=== PATIENT | male | born 1970 ===

== ENCOUNTER 2018-05-21 07:17 | Observation (INO) ==
[2018-05-21] MEDS ORDERED: Sodium Chloride 0.9% 1,000 ML PRIMARY IV ONE (07:24)
[2018-05-21] MEDS ORDERED: ASPIRIN 81 MG (BABY) CHEWABLE TABLET PO ONE (07:24)
--- NOTE | 2018-05-21 07:26 | EKG ---
[address] [address] Measurements Intervals [place] Rate: 81 P: 86 WV: 163 QRS: 80 QRSD: 85 T: 69 QT: 382 QTc: 419 Interpretive Statements SINUS RHYTHM No previous ECG available for comparison Electronically Signed On 05-21-18 11:45:36 MDT by Stanislaw Page [email or web address]
[2018-05-21 07:31] VITALS: RESP 16
[2018-05-21 07:37] LABS: BASOPHILS # (AUTO) 0.06 10*3/UL; BASOPHILS % (AUTO) 0.9 % (0-1); EOSINOPHILS # (AUTO) 0.17 10*3/UL; EOSINOPHILS % (AUTO) 2.6 % (0-8); Hematocrit [HCT] 47.6 % (42.0-52.0); Hemoglobin [HGB] 16.4 g/dL (14.0-18.0); LYMPHOCYTES # (AUTO) 1.84 10*3/uL; MEAN CORPUSCULAR HEMOGLOBIN 30.4 PG (27-31); MEAN CORPUSCULAR HGB CONC 34.5 g/dL (33-37); MEAN CORPUSCULAR VOLUME 88.3 FL (80-90); MEAN PLATELET VOLUME 8.8 FL (7.4-12.2); MONOCYTES # (AUTO) 0.33 10*3/UL (0.3-0.8); MONOCYTES % (AUTO) 5.1 % (5-15); NEUTROPHILS # (AUTO) 4.02 10*3/UL; NEUTROPHILS % (AUTO) 62.6 % (50-80); RED BLOOD COUNT 5.39 10^6/uL (4.70-6.10)
[2018-05-21 07:40] LABS: PLATELET MORPHOLOGY COMMENT NORMAL MORPHOLOGY (NORM); RBC MORPHOLOGY COMMENT NORMAL MORPHOLOGY (NORM); WBC MORPHOLOGY COMMENT NORMAL MORPHOLOGY (NORM)
[2018-05-21 07:46] LABS: BLOOD UREA NITROGEN 18 mg/dL (7-22); LIPASE 94 IU/L (23-300); SERUM ALBUMIN 5.1 g/dL (3.5-4.8)
--- NOTE | 2018-05-21 07:48 | PDOC ---
Chest Pain HPI - General Chief Complaint: Chest Pain Stated Complaint: chest pain Date Seen by Provider: 05/21/18 Time Seen by Provider: 07:30 Source: Patient Exam Limitations: POSITIVE: No limitations Treatment Prior to Arrival: REPORTS: None Nurse's Notes Reviewed & Considered: Yes - History of Present Illness Initial Comments: The patient is a 48-year-old male who presents to the emergency department with chest pain. He states that he had onset of pain in the left lower and mid chest approximately 20 minutes prior to arrival to the emergency department. He states that he was just sitting working on his computer when he had onset of pain. He states that the pain was intense and he states it was close to 10 out of 10. He had associated lightheadedness and felt like he could not catch his b reath secondary to the pain. By the time he arrives here in the emergency department he states that the pain has significantly improved. He currently rates his pain a 3 out of 10. He states that he has had similar pain in the past and underwent cardiac workup in 2017. He states that he had a stress test which was normal. He was told that he might be having spasms that are causing his pain. He denies any history of hypertension, hyperlipidemia or diabetes. He does smoke. He denies any significant family history of heart disease at an early age or blood clots. He states he does have some mild swelling in his feet in the mornings. He denies any leg pain. - Patient Home Medications Home Medications: Home Medications NK 05/12/18 - Patient Allergies Allergies/Adverse Reactions: Allergies Allergy/AdvReac Type Severity Reaction Status Date / Time No Known Allergies Allergy Verified 05/21/18 07:26 Past Medical History Past Medical History Reviewed: Other (please comment) (He does not take any prescription medications. He was recently seen at the doctor secondary to dizziness and weight loss and had blood work and chest x-ray done) ROS - Limitations ROS Limitations: No Limitations Constitution: DENIES: Chills, Fever Cardiovascular: REPORTS: Chest Pain Respiratory: REPORTS: Hurts To Breathe, Shortness Of Breath Neurological: REPORTS: Denies Neuro Symptoms Gastrointestinal: REPORTS: Nausea. DENIES: Vomitting Musculoskeletal: DENIES: Calf Pain, Muscle Aches Eyes: REPORTS: Denies Symptoms ENT: REPORTS: Denies Symptoms Skin: DENIES: Rash Chest Pain PE - General Appearance General Appearance: REPORTS: Alert, Cooperative, No Acute Distress - HEENT HEENT: POSITIVE: Head Inspection Nml, Eyes Inspection Nml, Ears Inspection Nml, Nose Inspection Nml, Pharynx Inspect. Nml - Neck Neck: REPORTS: Normal Inspection - Respiratory Respiratory: REPORTS: No Respiratory Distress, Breath Sounds Normal - Cardiovascular Cardiovascular: REPORTS: Regular Rate and Rhythm, Heart Sounds Normal Peripheral Pulses: Dorsalis-pedis (R): 2+, Dorsalis-pedis (L): 2+ - Abdomen Abdomen: Soft: (All Quadrants), Denies Tenderness: (All Quadrants), No Distention: (All Quadrants) - Skin Skin: REPORTS: Intact, No Rash - Extremities Extremity: Normal ROM: (All Extremities), Normal Inspection: (All Extremities) - Neurological / Psychological Neurological: POSITIVE: Oriented X3, dough cutter Normal As Tested, Motor Normal, Sensation Normal Chest Pain Progress - Results Reviewed by me Xrays/CTs/US Reviewed by me: Yes Discussed with Radiologist: Yes Radiology Findings: Chest x-ray is normal with no acute changes per radiologist. Lab Results Reviewed by Me: Yes CBC and BMP: 05/21/18 07:25 05/21/18 07:25 Lab Results:: Laboratory Results 05/21/18 05/21/18 05/21/18 07:25 07:25 07:25 WBC 6.43 RBC 5.39 Hgb 16.4 Hct 47.6 MCV 88.3 MCH 30.4 MCHC 34.5 RDW Std Deviation 42.0 RDW Coeff of [place] 13.0 Plt Count 365 H MPV 8.8 Immature Gran % (Auto) 0.2 Neut % (Auto) 62.6 Lymph % (Auto) 28.6 Lewis % (Auto) 5.1 Eos % (Auto) 2.6 Baso % (Auto) 0.9 Immature Gran # (Auto) 0.01 Neut # (Auto) 4.02 Lymph # (Auto) 1.84 [place] # (Auto) 0.33 Eos # (Auto) 0.17 Baso # (Auto) 0.06 WBC Morphology Comment Normal morphology Plt Morphology Comment Normal morphology RBC Morph Comment Normal morphology D-Dimer < 0.19 Sodium 141 Potassium 3.8 Chloride 108 Carbon Dioxide 24 Anion Gap 9 BUN 18 Creatinine 1.2 Estimated GFR > 60 BUN/Creatinine Ratio 15.00 Glucose 111 H Calculated Osmolality 294.0 H Calcium 10.0 Magnesium 2.1 Total Bilirubin 0.5 AST 29 ALT 23 Alkaline Phosphatase 63 CK-MB (CK-2) Troponin I C-Reactive Protein < 0.5 NT-Pro-B Natriuret Pep 56.0 Total Protein 8.0 Albumin 5.1 H Globulin 2.9 Albumin/Globulin Ratio 1.70 Amylase 68 Lipase 94 05/21/18 07:25 WBC RBC Hgb Hct MCV MCH MCHC RDW Std Deviation RDW Coeff of [place] Plt Count MPV Immature Gran % (Auto) Neut % (Auto) Lymph % (Auto) Lewis % (Auto) Eos % (Auto) Baso % (Auto) Immature Gran # (Auto) Neut # (Auto) Lymph # (Auto) Lewis # (Auto) Eos # (Auto) Baso # (Auto) WBC Morphology Comment Plt Morphology Comment RBC Morph Comment D-Dimer Sodium Potassium Chloride Carbon Dioxide Anion Gap BUN Creatinine Estimated GFR BUN/Creatinine Ratio Glucose Calculated Osmolality Calcium Magnesium Total Bilirubin AST ALT Alkaline Phosphatase CK-MB (CK-2) < 0.22 Troponin I < 0.012 C-Reactive Protein NT-Pro-B Natriuret Pep Total Protein Albumin Globulin Albumin/Globulin Ratio Amylase Lipase EKG Interpreted/Reviewed By Me:: Yes EKG Interpretation:: POSITIVE: Normal Sinus Rhythm, Normal Rate, Normal QRS, Normal ST/T - Patient's Progress MDM / ED Course: His EKG done shortly after arrival shows normal sinus rhythm with no acute ST segment or T-wave changes. He was somewhat hypertensive with blood pressure in the 150s over 100. His pain was significantly improved by the time he arrived here in the emergency department. He was given aspirin per chest pain protocol. His workup here shows a normal chest x-ray. His troponin and d-dimer are also normal. Other blood work including blood counts, chemistries etc. were all unremarkable. The patient continued to have just a slight vague discomfort in his chest. The patient had similar symptoms in December 2016 and was hospitalized elsewhere where he underwent a nuclear chemical stress test which showed no evidence of blockage. At this point it seems much less likely that this is cardiac in etiology. Current plan is to repeat a 4 hour troponin at 11:00 this morning. If this is normal he will follow-up as an outpatient for further evaluation. This may represent some form of esophageal spasm and he did receive Protonix 40 mg IV here. Patient care was turned over to Dr. Gonzalez at 9:00 in the morning. - Consult Counseled: POSITIVE: Patient, Family, RE: Lab Results, RE: Radiology Results, RE: DX, RE: Need for F/U Patient Care Time - Estimated PCT Patient Care Time (In Minutes): 35 Vital Signs - Recent Vital Signs Vital Signs: Vital Signs (Last 8 hours) Temp Pulse Pulse Resp BP Pulse Ox 05/21/18 07:26 97.1 F 74 73 16 148/100 97 - VS Reviewed Vital Signs Reviewed: Yes Discharge Clinical Impression: Chest pain Discharge Disposition: Other (Patient care transferred to Dr. Gonzalez at 9:00 AM) Condition: Stable Follow Up With: KATHRINE NIETO [Primary Care Provider] -
--- NOTE | 2018-05-21 08:21 | DI ---
AP CHEST X-RAY, 05/21/2018 7:24 AM : Clinical History: Chest pain. Previous Exam: 05/20/2018. Soft Tissues: No acute soft tissue abnormality. Bones: Normal. Heart: Normal heart. Lungs: No infiltrates. Effusion(s): None. Mediastinum: Normal mediastinum. Nodules: No pulmonary nodules. Reading: Normal chest x-ray. There has been no significant interval change.
[2018-05-21] MEDS ORDERED: PANTOPRAZOLE IV 40 MG VIAL IVP ONE (08:34)
[2018-05-21] MEDS ORDERED: Belladon/PHENobarbital Elixir 10 ML, Lidocaine Viscous Liquid 2% 15 ML, Mag Hyd/Al Hyd/... PO ONE ×3 (09:32)
--- NOTE | 2018-05-21 09:42 | PDOC ---
Transfer of Care - Care Accepted Time Care Transferred: 08:55 Report from Transferring Physician Received: Yes MDM / ED Course: This is a well-developed, well-nourished, 48-year-old male, who presents with chest pain that he describes as pressure and associated shortness of breath. Patient was at work today, sitting at his computer, when he developed chest pain as noted above. By the time he arrived here at the emergency room his shortness of breath was improved but his chest pain remained. At this time his chest pain continues to be intermittent and mild and he describes it as pressure. Patient had a similar episode in the recent past for which she was worked up down in [place] with equivocal results. Patient is a smoker and his father has coronary arterial disease with stents. Home Medications: Home Medications NK 05/12/18 Allergies/Adverse Reactions: Allergies No Known Allergies Allergy (Verified 05/21/18 07:26) Vital Signs Reviewed: Yes - Pending Patient Care Items Pending Patient Care Items: POSITIVE: Labs, Pain Control - Expected Patient Outcome Tentative Impression of Patient: Chest pain with differential including esophageal spasm, Prinzmetal angina, angina. Expected Disposition: POSITIVE: Home - Re-Evaluation of Patient Re-Examine Time:: 10:38 Disposition of Patient: POSITIVE: Admitted Counseled: POSITIVE: Patient, Family, RE: Lab Results, RE: Radiology Results, RE: DX, RE: Need for F/U Pending Test Results Documented: Yes Clinical Impression Documented: Yes - Results Reviewed Lab Results Reviewed by Me: Yes Lab Results: Laboratory Results 05/21/18 05/21/18 05/21/18 07:25 07:25 07:25 WBC 6.43 RBC 5.39 Hgb 16.4 Hct 47.6 MCV 88.3 MCH 30.4 MCHC 34.5 RDW Std Deviation 42.0 RDW Coeff of [place] 13.0 Plt Count 365 H MPV 8.8 Immature Gran % (Auto) 0.2 Neut % (Auto) 62.6 Lymph % (Auto) 28.6 [place] % (Auto) 5.1 Eos % (Auto) 2.6 Baso % (Auto) 0.9 Immature Gran # (Auto) 0.01 Neut # (Auto) 4.02 Lymph # (Auto) 1.84 [place] # (Auto) 0.33 Eos # (Auto) 0.17 Baso # (Auto) 0.06 WBC Morphology Comment Normal morphology Plt Morphology Comment Normal morphology RBC Morph Comment Normal morphology PT INR D-Dimer < 0.19 Sodium 141 Potassium 3.8 Chloride 108 Carbon Dioxide 24 Anion Gap 9 BUN 18 Creatinine 1.2 Estimated GFR > 60 BUN/Creatinine Ratio 15.00 Glucose 111 H Calculated Osmolality 294.0 H Calcium 10.0 Magnesium 2.1 Total Bilirubin 0.5 AST 29 ALT 23 Alkaline Phosphatase 63 CK-MB (CK-2) Troponin I C-Reactive Protein < 0.5 NT-Pro-B Natriuret Pep 56.0 Total Protein 8.0 Albumin 5.1 H Globulin 2.9 Albumin/Globulin Ratio 1.70 Amylase 68 Lipase 94 05/21/18 05/21/18 07:25 07:25 WBC RBC Hgb Hct MCV MCH MCHC RDW Std Deviation RDW Coeff of [place] Plt Count MPV Immature Gran % (Auto) Neut % (Auto) Lymph % (Auto) [place] % (Auto) Eos % (Auto) Baso % (Auto) Immature Gran # (Auto) Neut # (Auto) Lymph # (Auto) [place] # (Auto) Eos # (Auto) Baso # (Auto) WBC Morphology Comment Plt Morphology Comment RBC Morph Comment PT 9.4 L INR 0.92 D-Dimer Sodium Potassium Chloride Carbon Dioxide Anion Gap BUN Creatinine Estimated GFR BUN/Creatinine Ratio Glucose Calculated Osmolality Calcium Magnesium Total Bilirubin AST ALT Alkaline Phosphatase CK-MB (CK-2) < 0.22 Troponin I < 0.012 C-Reactive Protein NT-Pro-B Natriuret Pep Total Protein Albumin Globulin Albumin/Globulin Ratio Amylase Lipase EKG Interpreted/Reviewed By Me:: Yes (sinus rhythm with no ST changes.) Patient Care Time - Estimated PCT Patient Care Time (In Minutes): 30 Vital Signs - Recent Vital Signs Vital Signs: Vital Signs (Last 8 hours) Temp Pulse Pulse Resp BP Pulse Ox 05/21/18 07:26 97.1 F 74 73 16 148/100 97 - VS Reviewed Vital Signs Reviewed: Yes Discharge Clinical Impression: Chest pain Discharge Disposition: Admit to Inpatient Condition: Stable Follow Up With: KATHRINE NIETO [Primary Care Provider] - Date Decision to Admit to Inpatient: 05/21/18 Time Decision to Admit to Inpatient: 10:39
[2018-05-21] MEDS ORDERED: NITROGLYCERIN 0.4 MG SL TAB (BOTTLE OF 3) SL ONE (10:20)
[2018-05-21] MEDS ORDERED: Acetaminophen 1000mg Inj 1,000 MG/100 ML VIAL IV PRN (10:32)
[2018-05-21] MEDS ORDERED: Acetaminophen 1000mg Inj 1,000 MG/100 ML VIAL IV ONE (10:35)
[2018-05-21] MEDS ORDERED: CALCIUM CARBONATE 500 MG (TUMS) CHEWABLE TABLET PO PRN (11:36)
[2018-05-21] MEDS ORDERED: NITROGLYCERIN 0.4 MG SL TAB (BOTTLE OF 3) SL PRN (11:36)
[2018-05-21] MEDS ORDERED: LIDOCAINE W/ SODIUM BICARB 0.5 ML SYR SUBD PRN (11:36)
[2018-05-21 12:14] LABS: CHOL/HDL RATIO 3.72 RATIO (0-4.0)
[2018-05-21] MEDS ORDERED: NICOTINE 21 MG /DAY PATCH TRANSDERM ONE (12:41)
--- NOTE | 2018-05-21 15:11 | STRESSTEST ---
[facility] [place] Interpretive Statements This is a 48 YO who smokes, no DM, no cholesterol, no HTN, no early CAD in family, who presented with chest pain. Troponins are negative. resting EKG is NSR. Exercised with Shaheen protocol ETT, and exercised to 9:35, no ST depressions of signifigance on study. Had to stop in stage III due to fatigue and calf burning, no reproduction of chest pain. Maximum heart rate of 164, 94% predicted, positive hypertensive response to exercise. Impresssin: negative maximal stress test with hypertensive response to exercise. [email or web address]
--- NOTE | 2018-05-21 16:37 | DI ---
CT ANGIOGRAM OF THE CHEST, 05/21/2018 3:07 PM : Clinical History: Chest pain. Shortness of breath. Previous Exam: None at this facility. Technique: Scans from base of neck to lung bases with IV contrast. Bolus tracking protocol was used f or timing the injection. Non-MIPS and MIPS sagittal/coronal images generated. IV Contrast: 65 mL of Isovue 300. Base of Neck: Normal. Nodes: Normal axillary, supraclavicular, mediastinal, and hilar lymph nodes. Heart: Normal. No coronary artery calcifications. Aorta: Normal thoracic aorta. No aneurysm or dissection. Pulmonary Arteries: Normal. No pulmonary emboli or infarcts; no pulmonary hypertension. Lungs: No infiltrates. Small blebs are present indicating underlying bullous emphysema. There is no e vidence of interstitial pulmonary fibrosis. Effusion(s): None. Nodules: None. Bony Structures: Normal visualized portions of ribs, sternum, scapulae, clavicles, and shoulders. Nor mal visualized portions of thoracic spine. Limited Upper Abdomen: Normal adrenal glands and spleen. The spleen does have multiple punctate calci fications and this typically is associated with prior exposure to either TB or histoplasmosis. Normal limited views of liver and pancreas. READIN. Normal CTA of the chest. There are no pulmonary emboli or pulmonary infarcts. 2. Early changes of bullous emphysema.
[2018-05-21 17:06] VITALS: BP 137/70; TEMP 97.4; O2SAT 96
--- NOTE | 2018-05-21 19:21 | PDOC ---
HPI - History of Present Illness Date of Service: 05/21/18 Time of Service: 19:17 Chief Complaint: Chest pain History of Present Illness: This very pleasant 48-year-old male who smokes, has no family history of early coronary artery disease, does not have hypertension, does not have cholesterol problems, does not have diabetes, who presents with chest pain of acute onset this morning while sitting at his computer at work. He works in the [employer] industry. He was looking at the computer. The chest pain started and he had shortness of breath with it as well. He had had a similar episode 2 years ago in [place], [place], and at that time was told by his that his troponin was elevated on the first draw but normal on the last 2 and he had a negative chemical stress test. The patient responded to nitroglycerin glycerin here in his chest pain is completely resolved at this time. His enzymes were negative and we decided to do a treadmill stress test. He has never had a Shaheen protocol treadmill stress test before. He smokes about a pack per day. He drinks one cup of coffee per day. He states that he occasionally gets indigestion that he responds to Rolaids, but he was not able to get Rolaids today as they were in his truck and he was not close to his truck prior to coming into the emergency room. He does not have a lot of anxiety problems and he has absolutely no reproduction of chest pain upon palpation. No fevers, cough, or chills with this. No nausea or vomiting or dizziness or diaphoresis. Past Medical History Medical History: 1. Tobacco abuse Surgical History: No prior surgeries Pertinent Family History: He states is significant for his father having cardiac stents in his 70s. Past Social History: Smokes pack per day. . Has no children. Works in the [employer] industry. Lives in [place]. Tobacco Use: Current Every Day Smoker In the Past 12 Months, Have Used or Abuse Any of the Following Substance: None Alcohol Use: None Additional Past Medical History Comments: Please note the patient is not on Spiriva on admission. I am discharging him on Spiriva he had no medications on history. Medication / Allergies Home Medications: Home Medications Medication Instructions Recorded Confirmed Type Tiotropium [place] [Spiriva] 18 mcg IH DAILY #1 cap.w.dev 05/21/18 Rx Allergies/Adverse Reactions: Allergies Allergy/AdvReac Type Severity Reaction Status Date / Time No Known Allergies Allergy Verified 05/21/18 07:26 Review of Systems - Review of Systems All Systems: Reviewed & No Additional Complaints Except as Stated (I did a 12 point review systems and it was negative. Except as per history present illness.) Exam - Vitals Vital Signs: Vital Signs Temperature 97.4 F Temperature Source Temporal Artery Scan Pulse Rate [Pulse Oximeter] 72 Pulse Rate 68 Respiratory Rate 16 Blood Pressure [Left Arm] 137/70 Blood Pressure 120/79 Pulse Ox 96 Oxygen Delivery Method Room Air Height 6 ft Weight 175 lb - General General Appearance: No Acute Distress, Cooperative - Head Head Exam: Normal Inspection, Normocephalic, Atraumatic - Eye Eye Exam: POSITIVE: No Scleral Icterus - ENT ENT Exam: POSITIVE: Mucous Membranes Moist - Neck Neck Exam: Normal Inspection, No Tenderness, No Lymphadenopathy, No Thyromegaly, JVP is not Raised - Respiratory Respiratory Exam: POSITIVE: Clear to Auscultation - Bilaterally, Breathing Non Labored, Normal to Percussion and Palpation - Cardiovascular Cardiovascular Exam: POSITIVE: RRR, No Murmur, No Clicks, No Gallops, No Rubs, No JVD Additional Cardiovascular Details: Had been bradycardic earlier but now normal heart rate - GI/Abdominal GI/Abdominal Exam: POSITIVE: Normal Bowel Sounds, Non Tender, Non Distended, Soft - Rectal Rectal Exam: POSITIVE: Deferred - External Exam: POSITIVE: Deferred Exam: POSITIVE: Deferred - Extremities Extremities Exam: POSITIVE: No Clubbing Present, No Edema Present, No Cyanosis Present - Back Back Exam: POSITIVE: No CVA Tenderness - Neurological Neurological Exam: POSITIVE: Alert, Oriented x 3, No Facial Droop, Speech Intact / Clear, Moves All Extremities Equally - Psychiatric Psychiatric Exam: POSITIVE: Normal Affect, Normal Mood Results - Labs CBC and BMP: 05/21/18 07:25 05/21/18 07:25 Additional Lab Results: Laboratory Results 05/21/18 05/21/18 05/21/18 05:00 07:25 07:25 WBC 6.43 RBC 5.39 Hgb 16.4 Hct 47.6 MCV 88.3 MCH 30.4 MCHC 34.5 RDW Std Deviation 42.0 RDW Coeff of [place] 13.0 Plt Count 365 H MPV 8.8 Immature Gran % (Auto) 0.2 Neut % (Auto) 62.6 Lymph % (Auto) 28.6 [place] % (Auto) 5.1 Eos % (Auto) 2.6 Baso % (Auto) 0.9 Immature Gran # (Auto) 0.01 Neut # (Auto) 4.02 Lymph # (Auto) 1.84 [place] # (Auto) 0.33 Eos # (Auto) 0.17 Baso # (Auto) 0.06 WBC Morphology Comment Normal morphology Plt Morphology Comment Normal morphology RBC Morph Comment Normal morphology PT INR D-Dimer < 0.19 Sodium Potassium Chloride Carbon Dioxide Anion Gap BUN Creatinine Estimated GFR BUN/Creatinine Ratio Glucose Calculated Osmolality Calcium Magnesium Total Bilirubin AST ALT Alkaline Phosphatase CK-MB (CK-2) Troponin I Handheld Troponin I C-Reactive Protein NT-Pro-B Natriuret Pep Total Protein Albumin Globulin Albumin/Globulin Ratio Triglycerides Cholesterol LDL Cholesterol, Calc VLDL Cholesterol HDL Cholesterol Cholesterol/HDL Ratio Amylase Lipase TSH 0.771 Free T4 1.16 05/21/18 05/21/18 05/21/18 07:25 07:25 07:25 WBC RBC Hgb Hct MCV MCH MCHC RDW Std Deviation RDW Coeff of [place] Plt Count MPV Immature Gran % (Auto) Neut % (Auto) Lymph % (Auto) [place] % (Auto) Eos % (Auto) Baso % (Auto) Immature Gran # (Auto) Neut # (Auto) Lymph # (Auto) [place] # (Auto) Eos # (Auto) Baso # (Auto) WBC Morphology Comment Plt Morphology Comment RBC Morph Comment PT 9.4 L INR 0.92 D-Dimer Sodium 141 Potassium 3.8 Chloride 108 Carbon Dioxide 24 Anion Gap 9 BUN 18 Creatinine 1.2 Estimated GFR > 60 BUN/Creatinine Ratio 15.00 Glucose 111 H Calculated Osmolality 294.0 H Calcium 10.0 Magnesium 2.1 Total Bilirubin 0.5 AST 29 ALT 23 Alkaline Phosphatase 63 CK-MB (CK-2) < 0.22 Troponin I Handheld Troponin I < 0.012 C-Reactive Protein < 0.5 NT-Pro-B Natriuret Pep 56.0 Total Protein 8.0 Albumin 5.1 H Globulin 2.9 Albumin/Globulin Ratio 1.70 Triglycerides Cholesterol LDL Cholesterol, Calc VLDL Cholesterol HDL Cholesterol Cholesterol/HDL Ratio Amylase 68 Lipase 94 TSH Free T4 05/21/18 05/21/18 11:03 11:36 WBC RBC Hgb Hct MCV MCH MCHC RDW Std Deviation RDW Coeff of [place] Plt Count MPV Immature Gran % (Auto) Neut % (Auto) Lymph % (Auto) [place] % (Auto) Eos % (Auto) Baso % (Auto) Immature Gran # (Auto) Neut # (Auto) Lymph # (Auto) [place] # (Auto) Eos # (Auto) Baso # (Auto) WBC Morphology Comment Plt Morphology Comment RBC Morph Comment PT INR D-Dimer Sodium Potassium Chloride Carbon Dioxide Anion Gap BUN Creatinine Estimated GFR BUN/Creatinine Ratio Glucose Calculated Osmolality Calcium Magnesium Total Bilirubin AST ALT Alkaline Phosphatase CK-MB (CK-2) Troponin I Handheld 0.000 Troponin I C-Reactive Protein NT-Pro-B Natriuret Pep Total Protein Albumin Globulin Albumin/Globulin Ratio Triglycerides 56 Cholesterol 186 LDL Cholesterol, Calc 124.800 VLDL Cholesterol 11 HDL Cholesterol 50 Cholesterol/HDL Ratio 3.72 Amylase Lipase TSH Free T4 - EKG Data -: EKG Interpreted by Me Rate: Normal EKG Shows Normal: Sinus Rhythm - Imaging Status: Image Reviewed by Me (I looked at the chest x-ray and on my view it appears negative for pneumonia) Assessment and Plan - Patient Problems (1) Tobacco abuse Current Visit: Yes Status: Acute Code(s): Z72.0 - Tobacco use (2) Tobacco abuse counseling Current Visit: Yes Status: Acute Code(s): Z71.6 - Tobacco abuse counseling (3) Chest pain Current Visit: Yes Status: Acute Code(s): R07.9 - Chest pain, unspecified - Assessment / Plan Additional Assessment/Plan Details: Plan: 1. I will go ahead and do an enzyme at the time of admission, and if negative, proceed with stress test, Shaheen protocol exercise treadmill test 2. The patient received aspirin in the emergency room 3. Check blood pressures 4. if diagnosis becomes ACS or unstable angina, add therapeutic lovenox, otherwise will dose for DVT prophylaxis if that risk. 5. There is no evidence for reproduction of chest pain on palpation, so I do not think this is musculoskeletal 6. Proton pump inhibitor may be necessary if GERD like symptoms develop. However, he states that he uses Rolaids on a very intermittent basis. He does not have frequent, daily heartburn. 5. Nitroglycerin when necessary for chest pain 6. If treadmill stress test is negative, may proceed with CT scan to look at possibility of pulmonary emboli 7. Oxygen if necessary
--- NOTE | 2018-05-21 19:29 | DCSUMMARY ---
Hospitalization Summary Admit Date: 05/21/2018 Discharge Date: 05/21/18 Primary Diagnosis:: chest pain, possibly related to early emphysema,pleurisy Hospital Course: Very pleasant 48-year-old male that was admitted earlier. See history and physical exam. Essentially he had chest pain, and there was a question as to whether it could be cardiac in nature. His Shaheen protocol exercise treadmill stress test was a negative maximal stress test with hypertensive response to exercise. Given some normal blood pressures and some elevated blood pressures, I think that the patient should monitor this as an outpatient before making a diagnosis. They were not high enough to definitively diagnose hypertension. His cholesterol was normal. He had negative troponins. His thyroid function was normal. There is no evidence of diabetes. We spoke about smoking cessation frequently, and talked about nicotine replacement products versus Chantix versus Wellbutrin and support systems such as the state program for smoking cessation. He is still in a pre-contemplative versus contemplative mode. We did do a CT scan and it was negative for pulmonary emboli but it does show some bullous emphysema changes. I ordered an alpha-1 antitrypsin which is drawn prior to discharge and the patient will try to see Dr. Marie in a week to review that. Given that this is his second workup for chest pain, I think it would be very worthwhile for the patient to visit with cardiology to discuss whether or not to get a definitive answer on chest pain etiology from a heart perspective with a heart catheterization. Given a negative treadmill stress test today, and a history of a negative chemical stress test 2 years ago, I think this can be done on an outpatient basis and the patient and his agree. I certainly have no guarantees as to the accuracy of these tests as the pretest probability is low, even with a history of smoking. The patient and his understood this as well. Currently, no complaints of chest pain or shortness breath. Patient is interested in trialing Spiriva to see if that helps with any shortness of breath and symptoms of emphysema. No nausea or vomiting, no diaphoresis and he is "ready to go home". Assessment and Plan: 1. As per discharge assessments noted 2. Disposition: Patient is discharged home 3. Condition on discharge, stable and improved. 4. Diet: regular diet 5. Activities: resume normal activities 6. Follow-Up: 1. Dr. Marie in [address] Allen in the next couple of weeks 7. Medications at the Time of Discharge: Home Medications Medication Instructions Recorded Confirmed Type Tiotropium [place] [Spiriva] 18 mcg IH DAILY #1 cap.w.dev 05/21/18 Rx This is a same-day observation admission and discharge. Exam - Vitals Vital Signs: Vital Signs See examination documented on history and physical Data Peritnent Studies: Laboratory Results 05/21/18 05/21/18 05/21/18 05:00 07:25 07:25 WBC 6.43 RBC 5.39 Hgb 16.4 Hct 47.6 MCV 88.3 MCH 30.4 MCHC 34.5 RDW Std Deviation 42.0 RDW Coeff of [place] 13.0 Plt Count 365 H MPV 8.8 Immature Gran % (Auto) 0.2 Neut % (Auto) 62.6 Lymph % (Auto) 28.6 [place] % (Auto) 5.1 Eos % (Auto) 2.6 Baso % (Auto) 0.9 Immature Gran # (Auto) 0.01 Neut # (Auto) 4.02 Lymph # (Auto) 1.84 [place] # (Auto) 0.33 Eos # (Auto) 0.17 Baso # (Auto) 0.06 WBC Morphology Comment Normal morphology Plt Morphology Comment Normal morphology RBC Morph Comment Normal morphology PT INR D-Dimer < 0.19 Sodium Potassium Chloride Carbon Dioxide Anion Gap BUN Creatinine Estimated GFR BUN/Creatinine Ratio Glucose Calculated Osmolality Calcium Magnesium Total Bilirubin AST ALT Alkaline Phosphatase CK-MB (CK-2) Troponin I Handheld Troponin I C-Reactive Protein NT-Pro-B Natriuret Pep Total Protein Albumin Globulin Albumin/Globulin Ratio Triglycerides Cholesterol LDL Cholesterol, Calc VLDL Cholesterol HDL Cholesterol Cholesterol/HDL Ratio Amylase Lipase TSH 0.771 Free T4 1.16 05/21/18 05/21/18 05/21/18 07:25 07:25 07:25 WBC RBC Hgb Hct MCV MCH MCHC RDW Std Deviation RDW Coeff of [place] Plt Count MPV Immature Gran % (Auto) Neut % (Auto) Lymph % (Auto) [place] % (Auto) Eos % (Auto) Baso % (Auto) Immature Gran # (Auto) Neut # (Auto) Lymph # (Auto) [place] # (Auto) Eos # (Auto) Baso # (Auto) WBC Morphology Comment Plt Morphology Comment RBC Morph Comment PT 9.4 L INR 0.92 D-Dimer Sodium 141 Potassium 3.8 Chloride 108 Carbon Dioxide 24 Anion Gap 9 BUN 18 Creatinine 1.2 Estimated GFR > 60 BUN/Creatinine Ratio 15.00 Glucose 111 H Calculated Osmolality 294.0 H Calcium 10.0 Magnesium 2.1 Total Bilirubin 0.5 AST 29 ALT 23 Alkaline Phosphatase 63 CK-MB (CK-2) < 0.22 Troponin I Handheld Troponin I < 0.012 C-Reactive Protein < 0.5 NT-Pro-B Natriuret Pep 56.0 Total Protein 8.0 Albumin 5.1 H Globulin 2.9 Albumin/Globulin Ratio 1.70 Triglycerides Cholesterol LDL Cholesterol, Calc VLDL Cholesterol HDL Cholesterol Cholesterol/HDL Ratio Amylase 68 Lipase 94 TSH Free T4 05/21/18 05/21/18 11:03 11:36 WBC RBC Hgb Hct MCV MCH MCHC RDW Std Deviation RDW Coeff of [place] Plt Count MPV Immature Gran % (Auto) Neut % (Auto) Lymph % (Auto) [place] % (Auto) Eos % (Auto) Baso % (Auto) Immature Gran # (Auto) Neut # (Auto) Lymph # (Auto) [place] # (Auto) Eos # (Auto) Baso # (Auto) WBC Morphology Comment Plt Morphology Comment RBC Morph Comment PT INR D-Dimer Sodium Potassium Chloride Carbon Dioxide Anion Gap BUN Creatinine Estimated GFR BUN/Creatinine Ratio Glucose Calculated Osmolality Calcium Magnesium Total Bilirubin AST ALT Alkaline Phosphatase CK-MB (CK-2) Troponin I Handheld 0.000 Troponin I C-Reactive Protein NT-Pro-B Natriuret Pep Total Protein Albumin Globulin Albumin/Globulin Ratio Triglycerides 56 Cholesterol 186 LDL Cholesterol, Calc 124.800 VLDL Cholesterol 11 HDL Cholesterol 50 Cholesterol/HDL Ratio 3.72 Amylase Lipase TSH Free T4 Procedures: [address] [facility]. [facility] [place] [id number] PH: DD: [phone] FAX: [phone] ~DIAGNOSTIC IMAGING REPORT~ Patient: Vasquez Hu : 1970 Sex: M Age: 48 Exam Name: CT CTA Chest Non-Coronary [facility] Exam Date: 05/21/18 Report # : [id number] CPT Code: 71339 EMR/MR #: [id number] Ordering: TIFFANY HANSON Admiting: TIFFANY HANSON DO Primary: Dennis Whitaker MD Attending: TIFFANY HANSON DO Signed CT ANGIOGRAM OF THE CHEST, 05/21/2018 3:07 PM : Clinical History: Chest pain. Shortness of breath. Previous Exam: None at this facility. Technique: Scans from base of neck to lung bases with IV contrast. Bolus tracking protocol was used for timing the injection. Non-MIPS and MIPS sagittal/coronal images generated. IV Contrast: 65 mL of Isovue 300. Base of Neck: Normal. Nodes: Normal axillary, supraclavicular, mediastinal, and hilar lymph nodes. Heart: Normal. No coronary artery calcifications. Aorta: Normal thoracic aorta. No aneurysm or dissection. Pulmonary Arteries: Normal. No pulmonary emboli or infarcts; no pulmonary hypertension. Lungs: No infiltrates. Small blebs are present indicating underlying bullous emphysema. There is no evidence of interstitial pulmonary fibrosis. Effusion(s): None. Nodules: None. Bony Structures: Normal visualized portions of ribs, sternum, scapulae, clavicles, and shoulders. Normal visualized portions of thoracic spine. Limited Upper Abdomen: Normal adrenal glands and spleen. The spleen does have multiple punctate calcifications and this typically is associated with prior exposure to either TB or histoplasmosis. Normal limited views of liver and pancreas. READIN. Normal CTA of the chest. There are no pulmonary emboli or pulmonary infarcts. 2. Early changes of bullous emphysema. Dictated By: 05/21/18 1605 ALBIN HARMAN MD. Signed By: 05/21/18 1633 ALBIN HARMAN MD. [address] Medicine. [facility] [place] [id number] PH: DD: [phone] FAX: [phone] ~DIAGNOSTIC IMAGING REPORT~ Patient: Vasquez Hu : 1970 Sex: M Age: 48 Exam Name: XR CXR 1VW Exam Date: 05/21/18 Report # : [id number] CPT Code: 63138 EMR/MR #: [id number] Ordering: ALMA ROSA ISABEL Admiting: Primary: Dennis Whitaker MD Attending: Signed AP CHEST X-RAY, 05/21/2018 7:24 AM : Clinical History: Chest pain. Previous Exam: 05/20/2018. Soft Tissues: No acute soft tissue abnormality. Bones: Normal. Heart: Normal heart. Lungs: No infiltrates. Effusion(s): None. Mediastinum: Normal mediastinum. Nodules: No pulmonary nodules. Reading: Normal chest x-ray. There has been no significant interval change. Dictated By: 05/21/18 0815 ALBIN HARMAN MD. Signed By: 05/21/18 0821 ALBIN HARMAN MD. Patient Problems - Patient Problem List (1) Chest pain Current Visit: Yes Status: Resolved Code(s): R07.9 - Chest pain, unspecified Category: Medical (2) Tobacco abuse Current Visit: Yes Status: Acute Code(s): Z72.0 - Tobacco use Category: Medical (3) Tobacco abuse counseling Current Visit: Yes Status: Acute Code(s): Z71.6 - Tobacco abuse counseling Category: Medical (4) Bullous emphysema Current Visit: Yes Status: Acute Code(s): J43.9 - Emphysema, unspecified Category: Medical
== END 2018-05-21 20:00 | disposition home or self-care (01) ==
LOC: ER 07:17 → MED/SURG 07:17
PROVIDERS: ADMIT Family Medicine; ATTEND Family Medicine